=== PATIENT | female | born 1995 | race African-American/Black ===

== ENCOUNTER 2023-06-21 04:08 | Emergency (ER) | payer OTHER ==
[~2023-06-21] VITALS: Ht 172.7 cm; Wt 90.0 kg
[2023-06-21 04:17] VITALS: BP 107/76; PULSE 87; RESP 20; TEMP 97.8; O2SAT 98
[2023-06-21] MEDS ORDERED: ONDANSETRON 4MG ODT PO ONE (08:30)
[2023-06-21 10:02] LABS: CLARITY URINE TURBID (CLEAR); COLOR URINE ORANGE (YELLOW); GLUCOSE URINE NEGATIVE (NEGATIVE); KETONES URINE 1+ (NEGATIVE); LEUKOCYTE ESTERASE URINE NEGATIVE (NEGATIVE); NITRITE URINE NEGATIVE (NEGATIVE); OCCULT BLOOD URINE NEGATIVE (NEGATIVE); PROTEIN URINE TRACE (NEGATIVE); SPECIFIC GRAVITY URINE 1.036 (1.005-1.030); UROBILINOGEN URINE 0.2 E.U./dL (0.2-1.0)
[2023-06-21 10:23] LABS: AMORPHOUS SEDIMENT URINE 4+ /lpf; SQUAMOUS EPITHELIAL CELL URINE 1+ /lpf (RARE/1+)
[2023-06-21 10:24] LABS: BACTERIA URINE 4+; MUCUS URINE 1+ /lpf (< = 2+)
[2023-06-21 10:25] LABS: RBC URINE 0-2 /hpf (0-2); WBC URINE 0-2 /hpf (0-2)
[2023-06-22] MEDS ORDERED: POLY17PO3 PO (08:02)
== END 2023-06-21 11:17 | disposition home or self-care (01) ==
LOC: ER 04:08
DX: R42 Dizziness and giddiness (principal); H93.299 Other abnormal auditory perceptions, unspecified ear
CPT/HCPCS: 99283; 81003; 81025; Q0162

== ENCOUNTER 2023-06-22 07:17 | Emergency (ER) | payer MEDICAID, OTHER ==
[~2023-06-22] VITALS: Ht 170.2 cm; Wt 82.0 kg
[2023-06-22 07:29] VITALS: O2SAT 100
[2023-06-22] MEDS ORDERED: LACTULOSE 20G/30ML UDC PO ONE (08:00)
[2023-06-22] MEDS ORDERED: POLY17PO3 PO (08:02)
[2023-06-22 08:37] VITALS: BP 134/87; PULSE 78; RESP 16; TEMP 98.1
== END 2023-06-22 08:43 | disposition home or self-care (01) ==
LOC: ER 07:17
DX: K59.00 Constipation, unspecified (principal)
CPT/HCPCS: 99283

== ENCOUNTER 2023-06-28 09:14 | Emergency (ER) | payer MEDICAID ==
[~2023-06-28] VITALS: Ht 175.3 cm; Wt 84.0 kg
[~2023-06-28 09:14] MED LIST: POLY17PO3 PO
[2023-06-28 09:16] VITALS: O2SAT 98
[2023-06-28] MEDS ORDERED: KETOROLAC 30MG/ML VIAL IM ONE (10:00)
[2023-06-28] MEDS ORDERED: ONDANSETRON 4MG ODT PO ONE (10:00)
[2023-06-28] MEDS ORDERED: PROCHLORPERAZINE 10MG/2ML VIAL IM ONE (10:00)
[2023-06-28] MEDS ORDERED: DIPHENHYDRAMINE 50MG/ML VIAL IM ONE (10:00)
[2023-06-28 14:51] VITALS: BP 134/87; PULSE 92; RESP 20; TEMP 98.1
== END 2023-06-28 14:52 | disposition home or self-care (01) ==
LOC: ER 09:30
DX: G43.909 Migraine, unspecified, not intractable, without status migrainosus (principal)
CPT/HCPCS: 99284; 81025; 96372; Q0162; J1200; J1885; J0780